=== PATIENT | female | born 1950 | race Hispanic/Latino ===

== ENCOUNTER 2017-11-26 17:57 | Emergency (ER) | payer MEDICARE ==
[2017-11-26 17:57] VITALS: BMI 28.8
--- NOTE | 2017-11-26 19:18 | ED PDOC ---
Arrival/HPI - General Chief Complaint: Medical Clearance Time Seen by Provider: 11/26/17 18:09 - History of Present Illness Narrative History of Present Illness (Text): 11/26/17 19:14 Pt is a 67 yo F with PMH of hypothyroidism and hypertension presents to Emergency department due concerns of a left pulsating vein. Pt states that earlier this evening she was sitting at table talking with her friend when she felt a vein in the left side of her neck pulsating. Pt states that her friend saw the vessel pulsating as well. Pt denies any stress or anxiety leading up to the event. However, patient states that she often gets anxious and since coming to Emergency department has missed her daily dose of Atenolol. Pt denied chest pain, shortness of breath, nausea, vomiting, abdominal pain, fever, chills, headache, or dizziness. PMD: Cam Past Medical History - Tetanus Immunization Tetanus Immunization: Unknown - Cardiac Hx Cardiac Disorders: Yes Hx Hypertension: Yes - Pulmonary Hx Respiratory Disorders: Yes Other/Comment: SMOKER - Neurological Hx Neurological Disorder: No - HEENT Hx HEENT Disorder: No - Renal Hx Renal Disorder: No - Endocrine/Metabolic Hx Endocrine Disorders: Yes Hx Hypothyroidism: Yes - Hematological/Oncological Hx Blood Disorders: No - Integumentary Hx Dermatological Disorder: No - Musculoskeletal/Rheumatological Hx Musculoskeletal Disorders: Yes Hx Arthritis: Yes Hx Back Pain: Yes - Gastrointestinal Hx Gastrointestinal Disorders: No - Genitourinary/Gynecological Hx Genitourinary Disorders: No - Psychiatric Hx Psychophysiologic Disorder: No Hx Depression: No Hx Emotional Abuse: No Hx Physical Abuse: No Hx Substance Use: No - Past Surgical History Past Surgical History: No Previous - Suicidal Assessment Feels Threatened In Home Enviroment: No Family/Social History Family/Social History: No Known Family HX Smoking Status: Heavy Smoker > 10 Cigarettes Daily Hx Alcohol Use: Yes Frequency of alcohol use: Socially Hx Substance Use: No Hx Substance Use Treatment: No Allergies/Home Meds Allergies/Adverse Reactions: Allergies prednisone Allergy (Verified 11/26/17 18:37) RASH Home Medications: Home Meds Medication Instructions Recorded Confirmed Atenolol 50 mg PO DAILY 01/05/13 11/26/17 Levothyroxine Sodium [Synthroid] 150 mcg PO DAILY 01/05/13 11/26/17 Review of Systems - Review of Systems Constitutional: Normal Eyes: Normal ENT: Normal Respiratory: Normal Cardiovascular: Normal Gastrointestinal: Normal Genitourinary Female: Normal Musculoskeletal: Normal Skin: Normal Neurological: Normal Endocrine: Normal Hemo/Lymphatic: Normal Psychiatric: Normal Physical Exam Vital Signs Temp Pulse Resp BP Pulse Ox 11/26/17 18:45 98.6 F 80 16 196/78 H 99 Temperature: Afebrile Blood Pressure: Normal Pulse: Regular Respiratory Rate: Normal Appearance: Positive for: Well-Appearing Pain Distress: None Mental Status: Positive for: Alert and Oriented X 3 - Systems Exam Head: Present: Atraumatic, Normocephalic Extroacular Muscles: Present: EOMI Mouth: Present: Moist Mucous Membranes Nose (Internal): Present: Normal Inspection Neck: Present: Normal Range of Motion Respiratory/Chest: Present: Clear to Auscultation. No: Wheezes, Rales, Rhonchi Cardiovascular: Present: Regular Rate and Rhythm, Normal S1, S2 Abdomen: No: Tenderness, Peritoneal Signs, Rebound Upper Extremity: Present: Normal Inspection Lower Extremity: Present: Normal Inspection Neurological: Present: GCS=15 Skin: Present: Warm, Dry, Normal Color Psychiatric: Present: Alert, Oriented x 3 Medical Decision Making ED Course and Treatment: 11/26/17 19:[address] scan for neck, patient denied. Will follow up with outpatient physician. Disposition/Present on Arrival - Present on Arrival Any Indicators Present on Arrival: No History of DVT/PE: No History of Uncontrolled Diabetes: No Urinary Catheter: No History of Decub. Ulcer: No History Surgical Site Infection Following: None - Disposition Have Diagnosis and Disposition been Completed?: Yes Diagnosis: Vein symptom Disposition: HOME/ ROUTINE Disposition Time: 19:19 Condition: STABLE Additional Instructions: Follow up with PMD outpatient.
[2017-11-26 19:19] VITALS: BP 196/78; PULSE 80; TEMP 98.6; O2SAT 99
[2017-11-26 19:29] VITALS: RESP 18
== END 2017-11-26 19:26 | disposition home or self-care (01) ==
LOC: ED 17:57
DX: Z04.8 Encounter for examination and observation for other specified reasons (principal)

== ENCOUNTER 2019-01-03 10:00 | Outpatient (CLI) | payer MEDICARE | END 2019-01-03 10:01 | disposition home or self-care (01) | LOC: LAB 10:00 ==

== ENCOUNTER 2019-02-28 08:24 | Outpatient (CLI) | payer MEDICARE | END 2019-02-28 08:25 | disposition home or self-care (01) | LOC: LAB 08:24 ==